=== PATIENT | male | born 1940 | race Caucasian/White ===

== ENCOUNTER 2020-07-21 20:25 | Inpatient (IN) | payer OTHER ==
[2020-07-21] VITALS (12 sets, daily range): BP systolic 76–103; BP diastolic 36–73
[~2020-07-21] VITALS: Ht 175.3 cm; Wt 80.3 kg
[2020-07-21 20:57] LABS: HEMOGLOBIN 9.5 gm/dL (14.0-18.0); MONOCYTES 3.9 % (1.0-8.0)
[2020-07-21 21:03] LABS: ABSOLUTE NEUTROPHILS 13.4 thou/uL (1.4-8.2); BASOPHILS 0.6 % (0.0-2.0); EOSINOPHILS 0.3 % (0.0-3.0); HEMATOCRIT 29.1 % (42.0-52.0); LYMPHOCYTES 6.3 % (24.0-44.0); MCH 27.7 pg (26.0-34.0); MCHC 32.6 g/dL (28.0-37.0); MCV 84.8 fL (80.0-100.0); PLATELET COUNT 520 thou/uL (150-400); POLYS 88.9 % (36.0-66.0); RBC 3.43 mil/uL (4.50-6.00); RDW 16.5 % (10.5-14.5); WBC 15.1 thou/uL (4.0-11.0)
[2020-07-21 21:05] LABS: ANION GAP 12 mmol/L (7-16); BUN 27 mg/dL (7-18); CALCIUM 8.1 mg/dL (8.5-10.1); CHLORIDE 104 mmol/L (98-107); CO2 21 mmol/L (21-32); CREATININE 1.2 mg/dL (0.7-1.3); GLUCOSE 181 mg/dL (74-106); POTASSIUM 4.4 mmol/L (3.5-5.1); SODIUM 137 mmol/L (136-145)
[2020-07-21 21:15] LABS: ALBUMIN 1.9 g/dL (3.4-5.0); LIPASE 136 U/L (73-393); SGOT 26 U/L (15-37); SGPT 31 U/L (30-65); TOTAL BILIRUBIN 0.2 mg/dL (0.2-1.0); TOTAL PROTEIN 5.8 g/dL (6.4-8.2); TROPONIN-I <0.06 ng/mL (<0.06)
[2020-07-21 21:16] LABS: PROTIME 61.3 Seconds (10.5-12.1)
[2020-07-21] MEDS ORDERED: LISINOPRIL20 MG PO (21:17)
[2020-07-21] MEDS ORDERED: JANTOVEN5 MG PO (21:18)
[2020-07-21] MEDS ORDERED: SIMVASTATIN40 MG PO (21:19)
[2020-07-21] MEDS ORDERED: LOPRESSOR50 MG PO (21:19)
[2020-07-21 21:20] LABS: INR 6.13
[2020-07-21 21:25] LABS: ANISOCYTOSIS 1+; OVALOCYTES FEW; SCHISTOCYTES RARE
--- NOTE | 2020-07-21 23:00 | NUR ---
Pt admitted to ICU room 242 from ED for active lower GI bleed. On arrival pt used bedpan and had large bright maroon liquid stool with clots. Pt alert and oriented x4, skin pale and warm, mucous membranes dry. Room air sat >95%. called at 2250 and updated on pt's condition. Transfusions of packed red cells and fresh frozen plasma started at 2245. No s/s of rxn in first 15 min.
[2020-07-22] VITALS (53 sets, daily range): BP systolic 75–132; BP diastolic 37–90
--- NOTE | 2020-07-22 00:41 | NUR ---
At 232 pt went into a-fib with RVR, rates 130-170. At 235, [employer] PROGRAMMER notified that a-fib with RVR was continuing. Orders received for Cardizem 5 mg IVP and 1 L NS bolus. Bolus started immediatey and Cardizem given. Pt converted back to sinus rhythm at 0017.
[2020-07-22 03:21] LABS: MCH 28.4 pg (26.0-34.0); MCHC 32.6 g/dL (28.0-37.0); MCV 87.1 fL (80.0-100.0); RBC 2.65 mil/uL (4.50-6.00); RDW 16.2 % (10.5-14.5); WBC 11.4 thou/uL (4.0-11.0)
[2020-07-22 03:24] LABS: HEMOGLOBIN 7.5 gm/dL (14.0-18.0)
[2020-07-22 03:32] LABS: PROTIME 17.5 Seconds (10.5-12.1)
[2020-07-22 03:35] LABS: CALCIUM 7.1 mg/dL (8.5-10.1); MAGNESIUM 1.7 mg/dL (1.8-2.4); POTASSIUM 4.2 mmol/L (3.5-5.1)
[2020-07-22 04:00] LABS: INR 1.64
--- NOTE | 2020-07-22 05:35 | NUR ---
Pt progressing toward goals. Monitor has remained sinus rhythm after receiving 1 liter bolus and Cardizem 5 mg IVP for earlier episode of a-fib with RVR. MAP remaining >60 since receiving 1 upc, 1 FFP and fluids. INR initially 6.13, now 1.64. Pt has remained NPO for possible scope by GI today.
[2020-07-22 09:33] LABS: URINE BILIRUBIN NEGATIVE (Negative); URINE BLOOD NEGATIVE (Negative); URINE CLARITY CLEAR; URINE COLOR YELLOW; URINE GLUCOSE-RANDOM* NEGATIVE (Negative); URINE KETONES NEGATIVE (Negative); URINE LEUKOCYTES-REFLEX NEGATIVE (Negative); URINE NITRITE-REFLEX NEGATIVE (Negative); URINE PROTEIN (DIPSTICK) NEGATIVE (Negative); URINE SPECIFIC GRAVITY 1.025 (1.005-1.035); URINE UROBILINOGEN 0.2 E.U./dl (0.2-1.0)
--- NOTE | 2020-07-22 10:24 | NUR ---
ASSISTED PT OOB TO CHAIR. PT WENT INTO RAPID AFIB RATE 170-190. PT TOLORATING WELL. PAGED DR. ANDRES MD STATED HE WOULD PUT ORDERS IN THE COMPUTER.
--- NOTE | 2020-07-22 10:30 | NUR ---
PAGED DR. CAMPOS AGAIN. PT REMAINS IN AFIB RVR. NO ORDERS OF YET. MD STATES TO CONSULT DR. ARAIZA AND HE WOULD PUT ORDERS IN. DR. ARAIZA PAGED STAT. MD CALLED BACK AND ORDER GIVEN FOR LOPRESSOR AND AMIODARONE BOLUS AND START PROTOCOL. MEDICATION GIVEN WITH GOOD RESPONSE ONCE AMIODARONE BOLUS STARTED. WILL CONTINUE TO MONITOR.
--- NOTE | 2020-07-22 10:38 | NUR ---
AFTER ASSISTING PT OOB TO CHAIR, PT WENT INTO AFIB RVR RATE 170-190S. DR. CAMPOS PAGED IMMEDIATELY AND STATES HE WILL PUT ORDERS INTO COMPUTER.
--- NOTE | 2020-07-22 15:21 | EKG ---
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 : 1940 Requested By: Nitesh Wolf Order Number: [id number] MD: Maverick Duenas Measurements Intervals [place] Rate: 115 P: 18 NM: 139 QRS: 25 QRSD: 82 T: 55 QT: 305 QTc: 422 Interpretive Statements Sinus tachycardia Frequent premature supraventricular complexes Low voltage, precordial leads Poor R wave progression Baseline wander in lead(s) V1,V2 Compared to ECG 06/04/2001 06:12:08 Anterolateral T wave abnormality is no longer present Premature supraventricular complexes are now noted Electronically Signed On 07-22-2020 15:21:08 CDT by Maverick Duenas [email or web address] <ELECTRONICALLY SIGNED> By: Maverick Duenas MD, [facility] 07/22/20 1521 45 45 Maverick Duenas MD, [facility] /EPI
--- NOTE | 2020-07-22 18:41 | NUR ---
Pt progressing towards goals. For colonoscopy in am. Drinking golytley now. afib rvr today resolved with lopressor and amiodarone. Cont protonix gtt.
[2020-07-23] VITALS (17 sets, daily range): BP systolic 98–146; BP diastolic 50–80
--- NOTE | 2020-07-23 06:00 | NUR ---
A VERY DELIGHTFUL GENTLEMAN. IN GOOD SPIRITS! HAD THE GO LIGHTLY BOWEL PREP TONIGHT FOR COLONOSCOPY WITH DR DIAZ THIS AM. SAT UP IN CHAIR ALL NIGHT. UP TO TOILET 15 X . MOSTLY DARK BROWN WATERY STOOL THIS AM. EARLIER WAS MAROON IN COLOR. SINUS RHYTHM WITH OCC RUNS OF AFIB. AMIO GTT AT .5 MG AND PROTONIX GTT 8 MG. VSS HGB 7.1 AT 0200 REMAINS NPO. PROGRESSING TOWARD GOALS.
[2020-07-23 07:00] LABS: CALCIUM 7.3 mg/dL (8.5-10.1); CREATININE 0.9 mg/dL (0.7-1.3); POTASSIUM 4.2 mmol/L (3.5-5.1)
--- NOTE | 2020-07-23 11:50 | 2DMMODE ---
[address] [address] 2 D/M-MODE ECHOCARDIOGRAM Name: DAVID ADAN Room #: 242-P ADM IN M.R.#: [id number] Admission: 07/21/20 Attend Phys: Joni Shelton MD Discharge: Date of : 36 Report #: [id number] THIS REPORT FOR: cc: NAN - Leslie family physician/PCP NAN - Leslie family physician/PCP Kenny Wheeler MD [facility] ~ APPROVED REPORT Study performed: 07/23/2020 11:04:48 EXAM: Comprehensive 2D, Doppler, and color-flow Echocardiogram Patient Location: ICU Room #: 242 Status: routine BSA: 1.85 HR: 90 bpm BP: 146/80 mmHg Rhythm: irregular Other Information Study Quality: Fair Technically limited study due to exam done with patient in recliner. Indications Atrial Fibrillation Hx: ND, stents, HTN, HLP. 2D Dimensions RVDd: 32.66 mm IVSd: 12.00 (7-11mm) LVOT Diam: 20.69 (18-24mm) LVDd: 55.39 mm PWd: 12.23 (7-11mm) Ascending Ao: 36.31 (22-36mm) LVDs: 42.11 (25-40mm) Left Atrium: 44.78 (27-40mm) Aortic Root: 41.10 mm Volumes Left Atrial Volume (Systole) Single Plane 4CH: 63.83 mL Single Plane 2CH: 46.69 mL LA ESV Index: 33.00 mL/m2 Aortic Valve LVOT Max P.77 mmHg [facility] [address] [place] [address] 2 D/M-MODE ECHOCARDIOGRAM Name: DAVID ADAN Room #: 242-P [facility] IN .R.#: [id number] Admission: 07/21/20 Attend Phys: Joni Shelton MD Discharge: Date of : 36 Report #: [id number] LVOT Max V: 0.97 m/s Mitral Valve E/A Ratio: 1.3 MV Decel. Time: 120.15 ms MV E Max Daniel.: 1.21 m/s MV A Daniel.: 0.96 m/s MV PHT: 34.84 ms IVRT: 86.51 ms Pulmonary Valve PV Peak Daniel.: 1.06 m/s PV Peak Gr.: 4.47 mmHg Pulmonary Vein P Vein S: 0.56 m/s P Vein D: 0.34 m/s P Vein S/D Ratio: 1.65 Tricuspid Valve TR Peak Daniel.: 2.85 m/s TR Peak Gr.: 33.00 mmHg Left Ventricle The left ventricle is normal size. Regional wall motion abnormalities are noted. There is normal left ventricular wall thickness. Left ventricular systolic function is mildly decreased. LVEF is 45%. Right Ventricle The right ventricle is normal size. The right ventricular systolic function is normal. Atria The left atrium size is normal. The right atrium size is normal. Aortic Valve Aortic valve is calcified. Trace to mild aortic regurgitation. There is no aortic valvular stenosis. Mitral Valve The mitral valve is normal in structure. Moderate mitral annular calcification. Trace mitral regurgitation. No evidence of mitral valve stenosis. Tricuspid Valve [facility] [address] [place] [address] 2 D/M-MODE ECHOCARDIOGRAM Name: DAVID ADAN Room #: 242-P ADM IN .R.#: [id number] Admission: 07/21/20 Attend Phys: Joni Shelton MD Discharge: Date of : 36 Report #: [id number] The tricuspid valve is normal in structure. Mild tricuspid regurgitation. Estimated PAP is 33mmHg plus the right atrial pressure. Pulmonic Valve Pulmonic valve is not well visualized. Trace pulmonic regurgitation. Great Vessels Aortic root is mildly dilated. The ascending aorta is normal in size. IVC is not well visualized. Pericardium There is no pericardial effusion. <Conclusion> Normal left ventricular size/wall thickness Mild global hypokinesis ejection fraction of 4550% Grade 1 diastolic dysfunction Normal right ventricle size/function Normal atrial size Mild calcification aortic valve without stenosis Trace aortic/mitral valve insufficiency Mild tricuspid valve insufficiency Mild to moderate mitral annular calcification Pulmonary artery systolic pressure estimated 33 mmHg Aortic root mildly dilated at 4.1 cm No pericardial effusion <ELECTRONICALLY SIGNED> By: Kenny Wheeler MD, FACC 07/23/20 1150 1150 1150 Kenny Wheeler MD, FAC /INF
[2020-07-23 11:52] LABS: INR 1.43; PROTIME 15.3 Seconds (10.5-12.1)
--- NOTE | 2020-07-23 11:53 | NUR ---
CM COMPLETED ASSESSMENT W/PT. PT INDICATED HE LIVES AT HOME WITH SPOUSE. PT IS INDEPENDENT W/ADLS,DIVES AND HAS 0 DMES. PT DENIES HX WITH HH OR SNF. PT STATED HE HAS DONE SOME OUTPATIENT THERAPY. PT CURRENTLY DOSE NOT HAVE PCP. CM OFFERED RESOURCES. PT DECLINED, STATING HE WAS GOING TO GO TO HIS 'S PCP. STATED BACK IN HIS DAY "PEOPLE DIDNT GO TO THE DOCTOR." CM TO CONT TO FOLLOW.
--- NOTE | 2020-07-23 14:54 | NUR ---
PT PROGRESSING TOWARS DISCHARGE, WAS PLANNED FOR EGD TODAY AND WAS TAKEN TO PROCEDURE AROUND 1200 AND RETURNED AROUND 1445. PT RETURNED FROM COLONOSCOPY, WAS REPORTED TO THIS RN THAT A BIOPSY WAS DONE AND A POLYP SAMPLE WAS TAKEN, BLOOD IN STOOL WAS LIKELY FROM DIVERTICULITIS BLEEDING, AND TO RESUME COUMADIN WHEN APPROPERIATE. RN DID NOTE PT IS NOT A SOFT/FIBER RESTRICTED, HEART HEALTHY DIET. PT VS ARE STABLE AND IS NOW SETTLING IN THE BED
--- NOTE | 2020-07-23 16:35 | NUR ---
CONSULT NUMBER [id number] WAS COMPLETED BY THIS TUBE MAN PRIOR TO HIS GOING TO THE G.I. LAB. THIS TUBE MAN CALLED UP HIS SON WHOM IS FIRST DPOA AND TOLD HIM ABOUT HIS FATHER'S DECISIONS SINCE THE PATIENT WAS GOING TO HAVE PROCEDURES.
[2020-07-24] VITALS (33 sets, daily range): BP systolic 109–136; BP diastolic 50–86
--- NOTE | 2020-07-24 06:42 | NUR ---
ASSESSMENT: ASSUMED CARE OF PT AT 2300, RECEIVED REPORT FROM AVELINO CHARGE NURSE. VSS, AFEBRILE. ALERT AND ORIENT TIMES FOUR. AMIO INFUSING WITHOUT DIFFICULTY. NEW IV INITIATED. SR PER MONITOR. DOES DESAT WHILE ASLEEP IN THE HIGH 80'S. SPOT CHECKING SATS. DENIED PAIN, SOB AND N/V. SLOW PROGRESS TOWARDS DC GOALS. WILL CONTINUE TO MONITOR.
--- NOTE | 2020-07-24 12:15 | NUR ---
BPCI letter and preferred provider list provided, unable to speak with patient and no family present, lives in home setting
--- NOTE | 2020-07-24 12:17 | NUR ---
BPCI letter and preferred provider list provided, unable to speak to patient, lives in home setting
--- NOTE | 2020-07-24 13:00 | NUR ---
TRANSFERED VIA WC WITH IVS REPORT CALLED. ALL BELONGINGS WITH PT.
--- NOTE | 2020-07-24 13:09 | NUR ---
PT ARRIVED FROM CCU. PT IS SITTING UP IN CHAIR IN ROOM EATING LUNCH. PT DENIES PAIN AT THIS TIME. LAB IS IN ROOM DRAWING H&H.
[2020-07-24 13:19] LABS: HEMATOCRIT 26.2 % (42.0-52.0); HEMOGLOBIN 8.5 gm/dL (14.0-18.0)
[2020-07-25 04:56] VITALS: BP 134/57
[2020-07-25 08:06] VITALS: BP 133/67
[2020-07-25 11:55] VITALS: BP 134/61
[2020-07-25 13:08] LABS: HEMATOCRIT 25.5 % (42.0-52.0); HEMOGLOBIN 8.7 gm/dL (14.0-18.0); MCH 29.3 pg (26.0-34.0); MCHC 34.3 g/dL (28.0-37.0); MCV 85.4 fL (80.0-100.0); RBC 2.99 mil/uL (4.50-6.00); RDW 16.4 % (10.5-14.5); WBC 11.1 thou/uL (4.0-11.0)
[2020-07-25 13:30] LABS: POTASSIUM 3.8 mmol/L (3.5-5.1)
--- NOTE | 2020-07-25 14:05 | NUR ---
PT RESTING COMFORTABLY. UP AD ANTONY. PT AFEBRILE, ADEQUATE UOP, 1 BM (NO SIGNS OF BLEEDING), APPROPRIATE APPETITE. HEMOGLOBIN STABLE ON REDRAW. PT HAS BEEN THOUROUGHLY UPDATED AND EDUCATED ON CONDITION AND POC. PT PROGRESSING TOWARDS POC. POSSIBLE DC TODAY.
[2020-07-25] MEDS ORDERED: XARELTO20 MG PO (15:00)
[2020-07-25] MEDS ORDERED: PACERONE 200 M200 M1 PO (15:00)
[2020-07-25 15:14] VITALS: BP 128/79
[2020-07-25 15:35] VITALS: BP 128/79
== END 2020-07-25 16:20 | disposition home or self-care (01) | DRG 377 ==
LOC: ER 20:25 → EROBS 21:36 → ICU 21:36 → 2N 07-24 12:58
PROVIDERS: Internal Medicine; Internal Medicine Gastroenterology; Nurse Practitioner; Nurse Practitioner Family; Physician Assistant; ADMIT Internal Medicine; ATTEND Internal Medicine
PROC: 30233N1 Transfusion of Nonautologous Red Blood Cells into Peripheral Vein, Percutaneous Approach (ICD-10-PCS; principal; 2020-07-21)
PROC: 30233M1 Transfusion of Nonautologous Plasma Cryoprecipitate into Peripheral Vein, Percutaneous Approach (ICD-10-PCS; principal; 2020-07-21)
PROC: 0DBL8ZZ Excision of Transverse Colon, Via Natural or Artificial Opening Endoscopic (ICD-10-PCS; 2020-07-23)
DX: K57.31 Diverticulosis of large intestine without perforation or abscess with bleeding (principal); E43 Unspecified severe protein-calorie malnutrition; R57.1 Hypovolemic shock; D62 Acute posthemorrhagic anemia; D68.59 Other primary thrombophilia; D68.9 Coagulation defect, unspecified; I48.20 Chronic atrial fibrillation, unspecified; I95.9 Hypotension, unspecified; K63.5 Polyp of colon; I25.10 Atherosclerotic heart disease of native coronary artery without angina pectoris; D72.829 Elevated white blood cell count, unspecified; E78.5 Hyperlipidemia, unspecified; I10 Essential (primary) hypertension; K64.8 Other hemorrhoids; Z20.822 Contact with and (suspected) exposure to COVID-19; Z66 Do not resuscitate; Z95.5 Presence of coronary angioplasty implant and graft; Z79.01 Long term (current) use of anticoagulants; Z68.26 Body mass index [BMI] 26.0-26.9, adult; Z87.891 Personal history of nicotine dependence; Z81.1 Family history of alcohol abuse and dependence; Z82.49 Family history of ischemic heart disease and other diseases of the circulatory system; Z79.899 Other long term (current) drug therapy
CPT/HCPCS: 10078; 10081; 62110; 62900; 70005; 85076